=== PATIENT | male | born 1955 | race Caucasian/White ===

== ENCOUNTER → 2022-04-12 | Day surgery (SDC) | payer MEDICARE, BC ==
[~2022-04-12] VITALS: Ht 175.3 cm; Wt 77.1 kg
[~2022-04-12] MED LIST: ACETAMINOPHEN 325MG TABLET PO PRN; AMLO2.5T45 PO; ASPI-1497 PO; ATROPINE SULFATE 1MG/10ML SYR IV PRN; CETI10CA2 PO; CITA10TA16 MT; CITA20SO2 PO; CLOP-31 MT; CYAN-33 PO; FAMO20TA8 MT; FENTANYL CITRATE/PF 50MCG/ML 2ML VIAL ONE; FLUT16SP15 BOTHNSTRLS; FLUT1AER5 IH; HEPARIN 1000 UNITS/ML 10ML ONE; IODIXANOL 320MG/ML 100 ML BOTTLE IV ONE; LIDOCAINE HCL/PF 2% 20MG/ML 5 ML/VIAL ONE; LIP40 PO; LOSA100T32 MT; MIDAZOLAM HCL 2 MG/2 ML VIAL ONE; MONT10TA21 PO; NICARDIPINE 100MCG/ML 10ML VIAL (CATH LAB) IV ONE; NITROGLYCERIN 50MCG/ML 10ML VIAL (CATH LAB) IV ONE; OMEP40CA20 PO; ONDANSETRON HCL 4MG/2ML INJ IV PRN; ROSU40TA MT
== END | disposition home or self-care (01) ==
LOC: CCL 05:55
PROVIDERS: ATTEND Specialist
DX: I25.119 Atherosclerotic heart disease of native coronary artery with unspecified angina pectoris (principal); E78.5 Hyperlipidemia, unspecified; J44.9 Chronic obstructive pulmonary disease, unspecified; I11.0 Hypertensive heart disease with heart failure; I50.9 Heart failure, unspecified; Z79.899 Other long term (current) drug therapy; Z98.890 Other specified postprocedural states
CPT/HCPCS: 93458; C1769; C1887; C1893; J1644; J2250; J3010; J3490; Q9967